=== PATIENT | female | born 1990 | race African-American/Black ===

== ENCOUNTER 2023-08-01 21:25 | Emergency (ER) | payer OTHER ==
[2023-08-01 21:40] VITALS: BP 148/105; PULSE 93; RESP 16; TEMP 98.6; BMI 30.4
== END 2023-08-01 22:02 | disposition home or self-care (01) ==
LOC: FER 21:25
DX: T65.891A Toxic effect of other specified substances, accidental (unintentional), initial encounter (principal); Y04.0XXA Assault by unarmed brawl or fight, initial encounter; Y99.0 Civilian activity done for income or pay
CPT/HCPCS: 99282-25